=== PATIENT | male | born 1995 | race African-American/Black ===

== ENCOUNTER 2021-10-21 19:32 | Emergency (ER) | payer SELFPAY ==
[~2021-10-21] VITALS: Ht 170.2 cm; Wt 76.2 kg
[2021-10-21] MEDS ORDERED: IBUPROFEN IB200 MG PO (20:10)
[2021-10-21] MEDS ORDERED: CEFDINIR300 MG PO (20:10)
[2021-10-21] MEDS ORDERED: THERAFLU FLU &1 EAC1 PO (20:10)
== END 2021-10-21 20:40 | disposition home or self-care (01) ==
LOC: FSED 19:39
DX: H66.91 Otitis media, unspecified, right ear (principal); R05.9 Cough, unspecified
CPT/HCPCS: 99282

== ENCOUNTER 2022-09-24 15:20 | Emergency (ER) | payer SELFPAY ==
[~2022-09-24] VITALS: Ht 170.2 cm; Wt 82.8 kg
[~2022-09-24 15:20] MED LIST: CEFDINIR300 MG PO; IBUPROFEN IB200 MG PO; THERAFLU FLU &1 EAC1 PO
[2022-09-24] MEDS ORDERED: ODEFSEY TABLET1 EACH (15:36)
[2022-09-24] MEDS ORDERED: CEFDINIR300 MG PO ×2 (15:55→16:36)
[2022-09-24] MEDS ORDERED: CYCLOBENZAPRINE5 MG PO ×2 (15:56→16:36)
== END 2022-09-24 16:08 | disposition home or self-care (01) ==
LOC: FSED 15:43
DX: J01.90 Acute sinusitis, unspecified (principal); F17.210 Nicotine dependence, cigarettes, uncomplicated; B20 Human immunodeficiency virus [HIV] disease
CPT/HCPCS: 99283

== ENCOUNTER 2022-12-11 07:18 | Emergency (ER) | payer SELFPAY ==
[~2022-12-11] VITALS: Ht 172.7 cm; Wt 86.2 kg
[~2022-12-11 07:18] MED LIST changes: +CYCLOBENZAPRINE5 MG PO; +ODEFSEY TABLET1 EACH
[2022-12-11] MEDS ORDERED: IBUPROFEN 600 MG TAB PO STA (08:08)
[2022-12-11] MEDS ORDERED: IBUPROFEN 600 MG TAB ONE (08:26)
== END 2022-12-11 08:53 | disposition home or self-care (01) ==
LOC: FSED 07:46
DX: M79.18 Myalgia, other site (principal); B34.9 Viral infection, unspecified; B20 Human immunodeficiency virus [HIV] disease; F17.210 Nicotine dependence, cigarettes, uncomplicated
CPT/HCPCS: 83518; 87400; 99283